=== PATIENT | female | born 1950 | race Caucasian/White ===

== ENCOUNTER 2017-01-07 14:54 | Inpatient (IN) | payer MEDICARE, OTHER, SELFPAY ==
[~2017-01-07] VITALS: Ht 165.1 cm; Wt 77.7 kg
--- NOTE | ~2017-01-07 | ECH ---
Transthoracic Echocardiography Report (TTE) Demographics Patient Name LEONARDO ORDOÑEZ Date of Study 01/08/2017 Patient Number [id number] Visit Number [id number] Date of 1950 Room Number 313 Accession Number [id number] Gender Female Age 66 year(s) Referring Jose Luis Cerda Grain Elevator Agent Vanda Scott [facility] Physician MD Vadim Correia MD Physician Interpreting [place] Dispatch Manager Physician Supervising Ordering Physician Vadim Correia MD, MD/P Nurse Stress Loading Unit Operator Conclusions Summary Technically difficult exam to perform due to patient supine wearing back brace and head of bed 30 degrees. Unable to obtain subcostal images due to brace, parasternal images limited due to brace, apical images fair. The estimated left ventricular ejection fraction is 65%. The left ventricle is mildly dilated . Diastolic assessment reveals Grade I diastolic dysfunction. Procedure Type of Study TTE procedure:Echo Complete SF. Procedure Date Date: 01/08/2017 Start: 10:40 AM Technical Quality: Limited visualization due to patient immobility. Indications:Syncope and Bradycardia. Appropriate Use Criteria: 9 Height: 65 inches Weight: 177 pounds BSA: 1.88 m Rhythm: Within normal limits HR: 46 bpm BP: 120/61 mmHg M-Mode/2D Measurements LV Diastolic Dimension: 5.47 cm LV Systolic Dimension: 3.15 cm LV Septum Diastolic: 0.88 cm LV PW Diastolic: 0.83 cm AO Root Dimension: 2.94 cm Cardiac Output: 2.47 l/min LA Dimension: 3.13 cm Cardiac Index: 1.31 l/min*m LA volume index: 14 ml/m LVOT: 1.8 cm RV Base: 3 cm LVOT VTI: 21.07 cm RV Mid: 2.3 cm LV Stroke volume: 53.59 ml RV Length: 7.4 cm LV Stroke volume index: 28.51 ml/m Doppler Measurements AV Peak Velocity: 1.1 m/s MV Peak E-Wave: 0.53 m/s AV Peak Gradient: 4.84 mmHg MV Peak A-Wave: 0.62 m/s AV Mean Gradient: 2.94 mmHg MV E/A Ratio: 0.86 LVOT Peak Velocity: 0.92 m/s AV Area (Continuity):1.96 cm PV Peak Velocity: 0.97 m/s PV Peak Gradient: 3.76 mmHg RA Area: 12.09 cm Findings Left Ventricle The left ventricle is mildly dilated . Diastolic assessment reveals Grade I diastolic dysfunction. Right Ventricle Normal right ventricle structure and function. Left Atrium Normal left atrial size. Right Atrium Normal right atrial size. Mitral Valve Normal mitral valve structure and function. Aortic Valve Normal aortic valve structure and function. Tricuspid Valve Normal tricuspid valve structure and function. Pulmonic Valve The pulmonic valve is not well visualized. Pericardial Effusion No evidence of pericardial effusion. Miscellaneous Visualized portions of the aortic root and ascending aorta appear normal in size. Pleural Effusion No evidence of pleural effusion. Signature
[2017-01-11] MEDS ORDERED: SYNTHROID DP0.088 MG PO (16:07)
[2017-01-11] MEDS ORDERED: ONE DAILY1 EACH PO (16:08)
[2017-01-11] MEDS ORDERED: KLOR-CON M2020 ME1 PO (16:08)
[2017-01-11] MEDS ORDERED: LEVAQUIN DPS500 MG PO (16:14)
--- NOTE | 2017-01-12 10:29 | CO ---
ADMIT: 01/07/2017 RM/LOC: 313 [facility] MR#: [id number] [id number] [place], [place] [address] LEONARDO ORDOÑEZ [address] [place] [address] Consultation SEX: F AGE: 66 : 1950 DATE OF CONSULTATION: 01/07/2017 ATTENDING PHYSICIAN: Masood Fierro CONSULTING PHYSICIAN: Bjorn Perez MD HISTORY OF PRESENT ILLNESS: The patient has been moved up to the ICU, and I was asked to see regarding hypotension and hypoxia. This lady is 66 from [place] where she lives with her . 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 She has a brief smoking history 45 years ago for about 6 months. She has known hypertension, hypothyroidism, and was due to get a thyroid biopsy as an outpatient. She had a fall, admitted with a syncope yesterday, and she has a L1 fracture, which has been evaluated by the neurosurgeon. She has exogenous obesity. She was hypoxic, and a CT angiogram did not reveal any pulmonary embolism, but there were bibasilar atelectasis, and I suspect there may be some bronchiectatic changes also. She is in ICU room 313. She is receiving IV fluid. She has received 1400 mL of fluid earlier. Her blood pressure was low, but it has come up to 110/72, heart rate remains slow at 54 per minute, saturation 88% on supplemental oxygen. She was alert and appropriate. She has some exogenous obesity, but no edema and no calf tenderness. Abdomen protuberant. Diminished breath sounds. No adventitious sound noted. No heart murmur. Short thick neck. She has habitus, which could be consistent with sleep apnea syndrome. Her laboratory investigations are rather unremarkable. No leukocytosis. Her lactate level was normal. Her blood gasses show mild hypoxia without hypercapnia. TSH was markedly elevated over 20. Her home medications comprised of losartan 100 mg daily, chlorthalidone 25 mg daily, atenolol 50 mg daily, levothyroxine 88 mcg daily, and once a day multivitamin. I reviewed her chest x-ray, which shows poor inspiratory film. ADMIT: 01/07/2017 RM/LOC: 313 [facility] MR#: [id number] 26[address] [facility] [address] [place], [place] [address] LEONARDO ORDOÑEZ [address] [place] [address] Consultation SEX: F AGE: 66 : 1950 CT angio reviewed also. I suspect there may be some bibasilar atelectatic changes. She is receiving IV antibiotics in the form of vancomycin and Zosyn. The dosing is adjusted by pharmacy. IMPRESSION AND PLAN: Syncope secondary to hypothyroidism. One wonders about adrenocortical status. Hypothyroidism not adequately replaced. Hypertension on medication could be the cause of low blood pressure also. Mild exogenous obesity. Bibasilar atelectasis. I will continue with the antibiotics. I will get a cortisol level and give her corticosteroid bolus on a short-term basis. Would like to get head of the bed elevated, lung volume expansion, prevention of DVT, and PE, and we will see how she does with those. Would follow and make further recommendations and follow up. Bjorn Perez MD/ diana JOB #: [id number] CC: Masood Fierro, Attending Physician Masood Fierro, Family Physician
--- NOTE | 2017-01-17 06:57 | ER ---
ADMIT: 01/07/2017 RM/LOC: 428 [facility] MR#: [id number] [address] [facility] [address] [place], [place] [address] LEONARDO ORDOÑEZ [address] [place] [address] Emergency Room Report SEX: F AGE: 66 : 1950 DATE: 01/07/2017 CHIEF COMPLAINT: Syncopal episode and back pain. HISTORY OF PRESENT ILLNESS: The patient is a 66-year-old female, who had a syncopal episode at home today and was taken to an outside facility for evaluation. Apparently, she had a normal morning, went to the kitchen, ended up on the floor, and she states she was sure she had passed out. She was unable to get off the floor as she had back pain. She denied any chest pain, shortness of breath, or abdominal pain at this time. She denies any neurologic symptoms and had no loss of bowel or bladder function. At the outside facility, they worked her up and found that she had a what looks like new L1 compression fracture with little bit of retropulsion, and she had some hypotension and hypoxia, so they sent her to us for further evaluation. She did receive some IV fluids and was placed on supplemental oxygen prior to arrival here. When I examined her, her only real complaint at this time is pain in her lower back. REVIEW OF SYSTEMS: Ten-point review of systems is done and otherwise negative. PAST MEDICAL HISTORY: Significant for hypertension. She denies any cardiac rhythm problems or coronary artery disease. The patient has not had any history of DVT or PE and has no lung pathology. MEDICATIONS: See nurse's note. ALLERGIES: NONE. SOCIAL HISTORY: She lives with her , denies any smoking, drug, or alcohol use. PHYSICAL EXAMINATION: See T-sheet for complete physical exam. LABORATORY DATA: Labs from the outside facility were reviewed, and we did a repeat chemistries here, which were unremarkable, and an ABG, which showed a pH 7.33, pCO2 of 41, and PO2 of 64. CT angio of the chest was done, which reveals no PE, but she does have some atelectasis. This is quite possibly due to the fact that she has the lumbar spine injury and is not taking deep breaths. EMERGENCY DEPARTMENT COURSE: Our workup in the ER did not show an obvious ADMIT: 01/07/2017 RM/LOC: 428 [facility] MR#: [id number] [address] [address] LEONARDO ORDOÑEZ [address] [place] [address] Emergency Room Report SEX: F AGE: 66 : 1950 reason for the patient's syncope. She was apparently bradycardic into the 40s while at the outside facility, but here, she has been primarily in the 50s and nearly 60 for heart rate. She did have a recent change in her dose of losartan, which was doubled couple weeks ago by her primary care physician. She was seen by Dr. Amaya in the ER, who will be following the patient as a regulatory consultant, and I spoke to Dr. Fierro, who will be admitting the patient to his service as she is a [employer]. She is admitted in stable condition with diagnoses of: 1. Syncopal episode. 2. Bradycardia. 3. L1 compression fracture with retropulsion. 4. Hypoxemia. Donn Concepcion MD/ modl JOB #: [id number] CC: Masood Fierro MD, Attending Physician Masood Fierro MD, Family Physician
--- NOTE | 2017-01-20 08:45 | CO ---
ADMIT: 01/07/2017 RM/LOC: 313 [facility] MR#: [id number] [address] [address] CORTEZLEONARDO LAM [address] [place] [address] Consultation SEX: F AGE: 66 : 1950 DATE OF CONSULTATION: 01/07/2017 ATTENDING PHYSICIAN: Masood Fierro CONSULTING PHYSICIAN: Poli Amaya MD REASON FOR CONSULTATION: Lumbar 1 fracture. HISTORY OF PRESENT ILLNESS: The patient was at her home in [place]. She blacked out for some reason and had a subsequent fall, then had severe back pain. Afterwards, her tried to lift her up and could not really because of the severe back pain. She does not have numbness or tingling in her legs. She does not have any complain of any weakness. She has not complained of any bowel or bladder incontinence. ALLERGIES: NONE KNOWN. MEDICATIONS: 1. Cozaar. 2. Synthroid. 3. Atenolol. 4. Chlorthalidone. PAST MEDICAL HISTORY: Hypertension, hypothyroidism. SOCIAL HISTORY: She is a nonsmoker and nondrinker. Lives with her . FAMILY HISTORY: No history of neurosurgical disease. REVIEW OF SYSTEMS: A complete review of systems was obtained and pertinent positives dictated in the history of present illness. PHYSICAL EXAMINATION: VITAL SIGNS: Blood pressure 106/70, pulse 51, respiring 18 times a minute, temperature 97.9 degrees. GENERAL: She is an otherwise healthy-appearing, 66-year-old woman in thoracolumbar spinal precautions with an atraumatic head. No scleral icterus. Clear oropharynx. Normal respiratory excursion. ABDOMEN: Soft and obese abdomen. 2+ radial pulses. NEUROLOGICAL EXAMINATION: MENTAL STATUS: She is awake, alert, and oriented x4. She has no dysphonia, dysarthria, or aphasia. Her affect is appropriate. Her thought content is normal. CRANIAL NERVES: Cranial nerves II through XII are individually tested and found to be intact without deficit. MOTOR EXAM: Reveals 5/5 strength in bilateral upper and lower extremities at the shoulder abductors, elbow flexors, elbow extensors, wrist flexors, wrist extensors, interosseous muscles, vacuum drier tender strength, knee flexors, knee extensors, ankle dorsiflexors, ankle plantar flexors, and extensors of the hallucis bilaterally. ADMIT: 01/07/2017 RM/LOC: 313 [facility] MR#: [id number] [address] [address] LEONARDO CORTEZ [address] [place] [address] Consultation SEX: F AGE: 66 : 1950 SENSATION: Intact to light touch in the upper and lower extremities. DEEP TENDON REFLEXES: 2/4 in the upper and lower extremities. CEREBELLAR: No cerebellar signs. Gait not testable. ASSESSMENT AND PLAN: Ms. Cortez is a very pleasant lady, who by definition is a burst fracture. There is some fracture component posteriorly with mild amount of retrolisthesis on her CT scan from [facility] that I personally reviewed and interpreted. She has no neurological deficits. We will leave her on thoracolumbar spinal precautions until they can put her in a TLSO, and I will get some standing films. I think it is unlikely that she is going to need any surgical intervention. She is going to need a medical workup for the cause of her syncope and bradycardia currently. I will plan to follow along with her in the hospital. Poli Amaya MD/ diana JOB #: [id number] CC: Masood Fierro, Attending Physician Masood Fierro, Family Physician
--- NOTE | 2017-01-29 19:33 | HP ---
ADMIT: 01/07/2017 RM/LOC: 313 [facility] MR#: [id number] ACC#: [id number] [address] [address] SMITA LEONARDO [place] [address] [place] [address] History and Physical SEX: F AGE: 66 : 1950 DATE OF SERVICE: CHIEF COMPLAINT: Syncope and L1 vertebral fracture. HISTORY OF PRESENT ILLNESS: The patient states that she was walking to the kitchen early this morning around 9:30 and once in the kitchen, she passed out. She is unsure of how or why she fell or how long she was actually on the ground, however, her does say that she called him around 10:30 that morning, told him that she had fallen and could not get off the floor. She denies any dizziness, lightheadedness, chest pain, shortness of breath, palpitations, nausea, or vomiting. She says that she has been feeling fine recently. She occasionally have a cough, but otherwise, has been feeling well. She did not notice anything that precipitated this fall. On discussing recent changes, she does mention that her thyroid medication and some of her blood pressure medications have changed, but she was not sure which one. She says her thyroid medication changed because her insurance would not pay for the one that she was on previously and that one of her blood pressure medications went up from 50 mg daily to 100 mg, but not sure which one it was. She also mentions that she recently had an ultrasound that showed nodules on her thyroid, so she is supposed to be getting a biopsy tomorrow and is well concerned about us rescheduling that for her. She mentions that she was having severe low back pain after she fell and could not get off the floor, so she crawled over to her phone so she could call her where they called the volunteer fire fighter, and they brought her into the [facility] for further workup. When she was there they noted she was slightly hypertensive and bradycardic in the low 50s which did improve with fluid resuscitation. Workup at the outside hospital showed head CT that did not show any acute signs of a mass, atrophy, or bleeding, no fractures. They mentioned that there were some chronic white matter changes. CT-spine showed acute compression fracture of L1 with height loss of 25% with a large displaced fragment posterior and superiorly, and then some multilevel degeneration and also some changes of L5-L4 as far as degeneration, but no other acute fractures. Labs at the outside hospital, UA showed rare red blood cells, but no leukocyte esterase, no nitrites, or protein in the urine. CBC was fairly normal with hemoglobin only significantly low at 11.8, otherwise white blood cell count and platelets within normal range. BMP was also normal. Electrolytes, creatinine was initially elevated at 1.40, glucose is 95. Sodium and potassium were normal. Calcium was normal at 0.98. AST and ALT were also normal and so is alkaline phosphatase. Lab work for her TSH there showed a TSH of 24.47 which was obviously elevated, T4 was 1.07. Cardiac enzymes, CK-MB was slightly elevated at 6.4, but troponin was negative. CK on its own was negative. Labs that were done here at our ER after her transfer here showed a pH of 7.331, pCO2 of 41, and PO2 of 64. The patient was hypoxic when she initially arrived to the ER, and was put on 4 L of nasal cannula and improved. Electrolytes here were normal. Creatinine has now normalized to 1.0. She also had a CTA here due to her hypoxia that showed no pulmonary embolism, no dissections, and did show some moderate bilateral atelectasis, but did not show any signs of consolidation or pleural effusion. Lactic acid was slightly elevated at 2.0 which was obtained because the patient's blood pressure was slightly low, and she was requiring more oxygen, ADMIT: 01/07/2017 RM/LOC: 313 [facility] MR#: [id number] [address] [address] LEONARDO ORDOÑEZ [address] [place] [address] History and Physical SEX: F AGE: 66 : 1950 and she had a temperature of 102.8 when she first arrived to the floor. PAST MEDICAL HISTORY: Hypertension, hypothyroidism, and then now these new thyroid nodules. FAMILY HISTORY: Fairly nonsignificant, although she does say her mother does have osteoporosis. SOCIAL HISTORY: She is , nonsmoker, drinks 1 or 2 glasses of wine a week. ALLERGIES: NONE. SURGICAL HISTORY: She had tonsillectomy and adenoidectomy when she was a child. MEDICATIONS: Include: 1. Atenolol. 2. Cozaar. 3. HCTZ. 4. Levothyroxine for thyroid replacement. REVIEW OF SYSTEMS: A 10-point review of systems was taken and was negative otherwise mentioned in the HPI. PHYSICAL EXAMINATION: VITAL SIGNS: When arriving to the floor, temp was 102.9, 59 was pulse, 20 was respiratory rate, 84% initially on SpO2. Oxygen was increased to 6 L simple mask, and now saturating in the low 90s. Blood pressure 90/50. GENERAL: No acute distress. Mild pain, rating it at 2 to 3. Alert and oriented x3. She is very pleasant. No confusion. HEENT: Normocephalic and atraumatic. Moist mucous membranes. Extraocular muscles are intact. HEART: Regular rate and rhythm. No murmur. LUNGS: Clear to auscultation bilaterally. No wheezing. No rhonchi. She did have a little bit decreased expansion, but that was due more to her pain. ABDOMEN: Soft, nontender. Positive bowel sounds. EXTREMITIES: Showed no cyanosis or edema. Cranial nerves II through XII are grossly intact. ASSESSMENT AND PLAN: This is a 66-year-old female with syncope and first lumbar fracture. 1. Syncope. Workup will include looking for orthostatic hypotension, bradycardia, also differential includes vasovagal arrhythmias, etc., although likely could be due to the recent change in her medications, so we will decrease the losartan which is the medication that has increased with looking at her med list. We will decrease that back down to the 50 ADMIT: 01/07/2017 RM/LOC: 313 [facility] MR#: [id number] [address] [address] LEONARDO ORDOÑEZ [address] [place] [address] History and Physical SEX: F AGE: 66 : 1950 mg and adjust as needed. Bradycardia in the 50s to 60s. 2. L1 fracture managed by Neurosurgery. We appreciate their recommendations and help for this patient. 3. Increased thyroid and no nodules, we will try to get the fine-needle biopsies done inpatient while she is here. 4. Hypoxia. We got lactic acid which was on the high level of normal range for lactic acid. We will repeat lactic acid in 6 hours. We will continue with IV fluids for maintenance. No pneumonias or UTIs were seen on exam. We will continue workup for why the patient possibly could have fallen. We continue the patient's pain as well. This patient was discussed with Dr. Fierro. Vicki Drake MD Resident / Masood Fierro MD / diana JOB #: [id number] CC: Masood Fierro, Attending Physician Masood Fierro, Family Physician
--- NOTE | 2017-01-29 19:33 | DS ---
ADMIT: 01/07/2017 RM/LOC: 511 [facility] MR#: [id number] [address] [facility] [address] [place], [place] [address] LEONARDO ORDOÑEZ [address] [place] [address] General Discharge Summary SEX: F AGE: 66 : 1950 ADMISSION DATE: 01/07/2017 DISCHARGE DATE: 01/11/2017 CONSULTS: Include Dr. Amaya with Neurosurgery and Dr. Perez with Pulmonary ICU. PROCEDURES: None. CONDITION ON DISCHARGE: Improved and stable. FINAL DIAGNOSES: Include: 1. Syncope, multifactorial. 2. L1 fracture. 3. Hypothyroidism. 4. Thyroid nodules. 5. Acute hypotension. 6. Acute hypoxia. 7. Hypertension and hypokalemia were also managed throughout this hospital stay. HISTORY OF PRESENT ILLNESS: The patient presented to the ER after walking into the kitchen and passing out. She is not sure of how long she was passed out for, acute pain too. She found that she could not get up and she was having low back pain. The patient was found to have a L1 vertebral fracture secondary to the fall. HOSPITAL COURSE: The patient was noted to be bradycardic and hypertensive in the ER. The patient improved with fluid resuscitation and was admitted to the floor. However, the patient started having more episodes of hypertension and was also having episodes of hypoxia.The patient was then transferred to the ICU to be put on pressors. Also, ofnote, the patient has hypothyroidism and has also been diagnosed with nodules. She was in the process of workup at this time for the nodule. Due to the hypoxia and hypotension, imaging was performed and showed bilateral basilar atelectasis. Due to patient meeting sepsis criteria, she was also started on IV antibiotics. CT did not show any signs of pulmonary embolism. Ultimately, the patient was able to be weaned off the pressors as she became more stable with IV antibiotics as well as fluid resuscitation. There was some suspicion that syncope could have been due to her hypothyroidism as her TSH was extremely high but was not apparent of any significant cardiac arrhythmias other than the bradycardia. Echo also showed an estimated LVEF of 65%. She did have some grade 1 diastolic dysfunction. Otherwise, ventricles are relatively normal. The apices was difficult to obtain due to the patient's brace. The patient was also weaned off oxygen, became more stable. Again, the patient improved and was able to be weaned off the Levophed and the oxygen and transferred back to the Med-Surg floor. As far as her L1 fracture, the patient was placed in a TLSO brace which stabilized the back. No surgery was indicated at this time. Neurosurgery continued to follow throughout the admission. The patient did have an episode of hypokalemia that resolved with potassium replacement. The patient was sent ADMIT: 01/07/2017 RM/LOC: 511 [facility] MR#: [id number] [address] [address] LEONARDO ORDOÑEZ [address] [place] [address] General Discharge Summary SEX: F AGE: 66 : 1950 home on home oxygen. Throughout admission, chronic medical problems were also managed appropriately. DISCHARGE MEDICATIONS: Medications at time of discharge include: 1. Synthroid 0.088 mg. 2. Multivitamins. 3. Cepacol 1 lozenge every 2 hours as needed. 4. Maalox. 5. Tylenol 650. 6. Levaquin 500 mg daily for 7 days. 7. Potassium 20 mg t.i.d. FOLLOWUP: The patient is to follow up with Neurosurgery in 6 weeks. The patient also to follow up with primary care doctor in 1 week for blood pressure and BMP check, specifically for potassium. DISPOSITION: Home. DIET: Regular. CODE STATUS: Full. Vicki Drake MD Resident / Masood Fierro MD / modl JOB #: [id number] CC: Masood Fierro MD, Attending Physician Masood Fierro MD, Family Physician
== END 2017-01-11 15:10 | disposition home or self-care (01) | DRG 551 ==
LOC: ER 14:54 → 4PCU 17:50 → 3ICU 17:50 → 5MS 01-10 14:31
PROVIDERS: ADMIT Family Medicine
DX: S32.011A Stable burst fracture of first lumbar vertebra, initial encounter for closed fracture (principal); J96.01 Acute respiratory failure with hypoxia; I95.9 Hypotension, unspecified; J98.11 Atelectasis; I10 Essential (primary) hypertension; E87.6 Hypokalemia; R00.1 Bradycardia, unspecified; D64.9 Anemia, unspecified; R55 Syncope and collapse; E03.9 Hypothyroidism, unspecified; E04.1 Nontoxic single thyroid nodule; W19.XXXA Unspecified fall, initial encounter